=== PATIENT | male | born 1985 | race African-American/Black ===

== ENCOUNTER 2024-02-18 02:19 | Emergency (ER) | payer OTHER ==
[~2024-02-18] VITALS: Ht 200.7 cm; Wt 90.9 kg
[2024-02-18 02:27] VITALS: BP 132/83; PULSE 91; RESP 20; TEMP 98.1
== END 2024-02-18 04:08 | disposition left against medical advice (07) ==
LOC: EMS 02:19
DX: Z53.21 Procedure and treatment not carried out due to patient leaving prior to being seen by health care provider (principal)